=== PATIENT | female | born 1965 | race Caucasian/White ===

== ENCOUNTER → 2018-02-06 | Outpatient (CLI) | payer OTHER ==
[~2018-02-06] MED LIST: ALBU3IS; ALBU3IS INH; ALBU90I; ALBU90OI61 INH; ALLO300 PO; ASCO500 PO; ASPI81EC PO; CHOLP; CHOLP PO; COLCHICINE 0.6 MG; Cholestyrami239.4 GM PO; ENAL20; ENAL20 PO; ERGO400 PO; ESTR2; ESTR2 PO; FLUSAL5005; FLUSAL5005 IH; HYDACE5 PO; HYDCHL25; HYDCHL25 PO; INS70/30I SUBQ; LEVFLO250 PO; LEVFLO500 PO; LISI5 PO; MAGNESIUM; METO50 PO; NEBI5 PO; ONDA4ODT MM; ONDA8ODT MM; OXYACE5T PO; PANT40; PANT40 PO; POTCHL10ER PO; PRED5; PRED5 PO; Percocet 7.5-31 EACH PO; RXONDA4ODT MM; TORSEMIDE PO; Zofran Odt4 MG SL; Zofran8 MG PO; [UNRECOGNIZED DRUG - OTHER]
== END | disposition home or self-care (01) ==
LOC: OLS 14:49 → LAB SHORT 14:49
PROVIDERS: Nurse Practitioner Women's Health
DX: Z12.72 Encounter for screening for malignant neoplasm of vagina (principal); Z91.89 Other specified personal risk factors, not elsewhere classified
CPT/HCPCS: 87624; G0123

== ENCOUNTER → 2018-02-24 | Outpatient (CLI) | payer OTHER | END | disposition home or self-care (01) | LOC: LAB 14:14 → LAB SHORT 14:14 | DX: R35.0 Frequency of micturition (principal); R30.1 Vesical tenesmus | CPT/HCPCS: 87077; 87086; 87186 ==

== ENCOUNTER → 2018-05-16 | Outpatient (CLI) | payer OTHER | LOC: LAB SHORT 16:18 → LAB 16:18 | DX: N39.0 Urinary tract infection, site not specified (principal) | CPT/HCPCS: 87086 ==

== ENCOUNTER 2018-10-01 11:40 | Observation (INO) | payer OTHER ==
[~2018-10-01] VITALS: Ht 177.8 cm; Wt 130.6 kg
[2018-10-01 12:34] LABS: BASOPHILS ABSOLUTE AUTO 0.07 K/mm3 (0.00-0.23); BASOPHILS PERCENT AUTO 1 % (0-2); EOSINOPHILS ABSOLUTE AUTO 0.17 K/mm3 (0.00-0.68); EOSINOPHILS PERCENT AUTO 1 % (0-6); Hematocrit 40.9 % (33.0-51.0); Hemoglobin 12.9 g/dL (11.5-16.0); IMMATURE GRAN PERCENT AUTO 1 % (0-1); LYMPHOCYTES PERCENT AUTO 18 % (21-46); MONOCYTES PERCENT AUTO 7 % (4-13); Mean Corpuscular HGB 29.1 pg (26.0-34.0); Mean Corpuscular HGB Conc 31.5 g/dL (31.5-36.5); Mean Corpuscular Volume 92 fL (80-100); Mean Platelet Volume 9.4 fL (9.1-12.4); NEUTROPHILS ABSOLUTE AUTO 10.73 K/mm3 (1.96-9.15); NEUTROPHILS PERCENT AUTO 72 % (41-73); Platelet Count 334 K/mm3 (150-400); RDW Standard Deviation 47.1 fL (35.1-46.3); Red Blood Cell Count 4.44 M/mm3 (3.80-5.20); White Blood Cell Count 14.87 K/mm3 (4.00-11.30)
[2018-10-01 12:49] LABS: Alanine Aminotransfer (ALT/SGP 24 U/L (12-78); Albumin, Blood 3.6 g/dL (3.4-5.0); Alk Phos 137 U/L (50-136); Anion Gap 10 mmol/L (6-16); Aspartate Aminotrans (AST/SGOT 22 U/L (12-37); Bilirubin, Total 0.4 mg/dL (0.1-1.0); Blood Urea Nitrogen 13 mg/dL (8-24); Bun/Creatinine Ratio 19.1 (12.0-20.0); CO2, Blood 29 mmol/L (21-32); Calcium, Blood 8.8 mg/dL (8.5-10.1); Chloride, Blood 99 mmol/L (98-108); Creatinine, Blood 0.68 mg/dL (0.40-1.00); Globulin, Blood 3.5 g/dL (2.2-4.0); Glomerular Filtration Rate >60 (60-); Glucose, Blood 214 mg/dL (70-99); Potassium, Blood 3.2 mmol/L (3.5-5.5); Sodium, Blood 138 mmol/L (136-145); Total Protein, Blood 7.1 g/dL (6.4-8.2)
[2018-10-01 13:50] LABS: Source, Urine Clean Catch
[2018-10-01 14:08] LABS: Bilirubin, Urine Neg (Neg); Blood, Urine Neg (Neg); Glucose Qualitative, Urine Neg (Neg); Ketones, Urine Neg (Neg); Leukocyte Esterase, Urine 1+ (Neg); Nitrite, Urine Neg (Neg); Protein, Urine 1+ (Neg); Urobilinogen, Urine NORM (Normal)
[2018-10-01 14:23] LABS: Appearance, Urine Clear (Clear); Color, Urine Yellow (P-Yellow)
[2018-10-01 14:24] LABS: Bacteria Few /hpf; Calcium Oxalate Crystals Rare /hpf; Red Blood Cells, Urine 0-2 /hpf (0-2); Squamous Epithelial Cells Few /hpf (Few)
--- NOTE | 2018-10-01 17:18 | NUR ---
OR HAS SEEN PT. HAD SEEN PT IN ED. PT IS PLEASANT. USED THE RESTROOM. DR MUNROE SAW PT HX INCLUDING LABS. PT WAS GIVEN DUONEB. AT BEDSIDE. WILL TAKE PT BACK TO OR.
[2018-10-02 05:44] LABS: BASOPHILS ABSOLUTE AUTO 0.01 K/mm3 (0.00-0.23); BASOPHILS PERCENT AUTO 0 % (0-2); EOSINOPHILS PERCENT AUTO 0 % (0-6); Hematocrit 37.6 % (33.0-51.0); Hemoglobin 11.8 g/dL (11.5-16.0); IMMATURE GRAN ABSOLUTE AUTO 0.06 K/mm3 (0.00-0.10); IMMATURE GRAN PERCENT AUTO 1 % (0-1); LYMPHOCYTES ABSOLUTE AUTO 0.96 K/mm3 (0.84-5.20); LYMPHOCYTES PERCENT AUTO 7 % (21-46); MONOCYTES ABSOLUTE AUTO 0.53 K/mm3 (0.16-1.47); MONOCYTES PERCENT AUTO 4 % (4-13); Mean Corpuscular HGB 28.6 pg (26.0-34.0); Mean Corpuscular HGB Conc 31.4 g/dL (31.5-36.5); Mean Corpuscular Volume 91 fL (80-100); Mean Platelet Volume 9.4 fL (9.1-12.4); NEUTROPHILS ABSOLUTE AUTO 11.67 K/mm3 (1.96-9.15); NEUTROPHILS PERCENT AUTO 88 % (41-73); Platelet Count 323 K/mm3 (150-400); RDW Coefficient Variation 14.3 % (11.7-14.2); Red Blood Cell Count 4.13 M/mm3 (3.80-5.20); White Blood Cell Count 13.23 K/mm3 (4.00-11.30)
--- NOTE | 2018-10-02 07:15 | NUR ---
10/02/18 0715 Alix Ann VERIFICATIONS: EDIT CHART.
--- NOTE | 2018-10-02 07:43 | NUR ---
SUMMARY: POD [address] CRUZ. PT HAVING HTN PER HISTORY AND STATES SHE HAS NOT TAKEN ANY HOME MEDS DUE TO N/V PRIOR TO ADMIT, REMAINS AFEBRILE. HOSPITALIST CONSULT CALLED THIS MORNING. UP SEVERAL TIMES FOR BRP, VOIDING DARK YELLOW. TOLERATING CLEARS, NO NAUSEA. PAIN WELL CONTROLLED WITH 2 TABS NORCO X2 THIS SHIFT AND 25 MCG IV FENTANYL. ENCOURAGE OOB ACTIVITY AND HOSPITALIST CONSULT FOR MEDICAL MANAGEMENT OF HTN.
--- NOTE | 2018-10-02 07:53 | NUR ---
HOSPITALIST CX CALLED AT THIS TIME. DR PLATA AWARE OF PATIENT AND WILL COME SEE HER DURING SURGICAL FLOOR ROUNDS.
[2018-10-02] MEDS ORDERED: HYDR1TAB94 PO (16:22)
--- NOTE | 2018-10-02 16:51 | NUR ---
DISCHARGE SUMMARY PT A&OX4, VSS, WENT HOME WITH , WITH ALL PERSONAL POSSESSIONS, DISCHARGE PACKET AND 1 NARC SCRIPT. DISCHARGE INSTRUCTIONS PROVIDED. PT REP UNDERSTANDING THOSE INSTRUCTIONS INCLUDING FU [address] CRUZ. NISREEN BOSWELL.
== END 2018-10-02 16:45 | disposition home or self-care (01) ==
LOC: ER 11:40 → SURS 11:41
PROVIDERS: Physician Assistant; ADMIT Surgery
PROC: 0DTJ4ZZ Resection of Appendix, Percutaneous Endoscopic Approach (ICD-10-PCS; principal; 2018-10-01 17:00)
DX: K35.80 Unspecified acute appendicitis (principal); E11.9 Type 2 diabetes mellitus without complications; I10 Essential (primary) hypertension; Z79.52 Long term (current) use of systemic steroids; Z79.899 Other long term (current) drug therapy; Z79.82 Long term (current) use of aspirin; Z88.2 Allergy status to sulfonamides; Z88.8 Allergy status to other drugs, medicaments and biological substances
CPT/HCPCS: 36415; 74177; 80053; 81001; 82947; 83690; 85025; 87086; 88304; 93005; 93010; 96361; 96365; 96366; 96375; 96376; 99285-25; C1729; G0378; J0295; J1100; J1720; J1815; J1885; J2250; J2405; J2710; J3010; J7030; J7120; Q9967

== ENCOUNTER → 2018-10-20 | Outpatient (CLI) | payer OTHER ==
[~2018-10-20] MED LIST changes: +HYDR1TAB94 PO
== END | disposition home or self-care (01) ==
LOC: LAB 12:25 → LAB SHORT 12:25
DX: N39.0 Urinary tract infection, site not specified (principal)
CPT/HCPCS: 87086

== ENCOUNTER → 2019-06-04 | Outpatient (CLI) | payer OTHER ==
[2019-06-06 15:07] LABS: HPV 16 Negative (Negative); HPV 18 Negative (Negative); HPV OTHER HR TYPES Negative (Negative)
== END | disposition home or self-care (01) ==
LOC: LAB 16:51 → LAB SHORT 16:51
PROVIDERS: Nurse Practitioner Women's Health
DX: Z12.4 Encounter for screening for malignant neoplasm of cervix (principal); Z91.89 Other specified personal risk factors, not elsewhere classified
CPT/HCPCS: 87624; G0123

== ENCOUNTER → 2021-02-22 | Outpatient (CLI) | payer OTHER | END | disposition home or self-care (01) | LOC: LAB SHORT 11:34 → LAB 11:34 | DX: D48.5 Neoplasm of uncertain behavior of skin (principal) | CPT/HCPCS: 88305 ==

== ENCOUNTER → 2021-05-03 | Outpatient (CLI) | payer OTHER | LOC: LAB SHORT 08:54 → LAB 08:54 | DX: D48.5 Neoplasm of uncertain behavior of skin (principal); D22.5 Melanocytic nevi of trunk; D22.62 Melanocytic nevi of left upper limb, including shoulder; Z88.2 Allergy status to sulfonamides; Z88.8 Allergy status to other drugs, medicaments and biological substances | CPT/HCPCS: 88305 ==

== ENCOUNTER 2022-04-25 07:01 | Day surgery (SDC) | payer OTHER ==
[~2022-04-25] VITALS: Ht 177.8 cm; Wt 119.4 kg
[2022-04-25] MEDS ORDERED: SYMBICORT 160-4.6 GM INH (07:25)
[2022-04-25] MEDS ORDERED: INSULANI (07:31)
--- NOTE | 2022-04-25 07:37 | NUR ---
[facility] in [facility] warming gown applied. Patient states colon prep results clear. History, Chart, Medications and Allergies reviewed before start of procedure.Lungs clear T/O to Auscultation. Patient confirms NPO status and agrees with scheduled surgery. Pre-Op teaching done. Pt verbalizes understanding. Patient States Post-Procedure ride home has been arranged.
--- NOTE | 2022-04-25 08:03 | NUR ---
04/25/22 0803 Betsy Joseph HISTORY, CHART, MEDICATIONS AND ALLERGIES REVIEWED BEFORE START OF PROCEDURE. PATIENT CONFIRMS NPO STATUS AND AGREES WITH SCHEDULED PROCEDURE. 3-LEAD EKG REVIEWED WITH PHYSICIAN PRIOR TO START OF PROCEDURE. MONITOR INTACT WITH CONTINUOUS PULSE OXIMETRY,CAPNOGRAPHY, 3-LEAD EKG, INTERMITTENT BP. SUPPLEMENTAL O2 TO BE TITRATED THROUGHOUT PROCEDURE TO MAINTAIN O2 SATURATION ABOVE 90%. PATIENT DETERMINED TO BE ASA APPROPRIATE FOR PROPOFOL SEDATION PRIOR TO START OF PROCEDURE BY DR. BUENO. MALLAMPATI CLASS 1 AIRWAY: COMPLETE VISULATIZATION OF THE SOFT PALATE. STOP BANG ASSESSMENT SCORE 3.
--- NOTE | 2022-04-25 09:10 | NUR ---
PT TOLERATING WATER. NO PAIN. Discharge instructions reviewed with patient. Patient verbalizes understanding. Copy given to patient to take home. Discharged via wheelchair to private car for ride home.
== END 2022-04-25 09:14 | disposition home or self-care (01) ==
LOC: ORSCMMR 07:01 → ORD 08:00 → ORSCMMR 08:00
DX: R13.14 Dysphagia, pharyngoesophageal phase (principal); K44.9 Diaphragmatic hernia without obstruction or gangrene; R19.7 Diarrhea, unspecified; K21.9 Gastro-esophageal reflux disease without esophagitis; I10 Essential (primary) hypertension; R00.0 Tachycardia, unspecified; E11.9 Type 2 diabetes mellitus without complications; J45.909 Unspecified asthma, uncomplicated; M10.9 Gout, unspecified; E66.9 Obesity, unspecified; Z68.39 Body mass index [BMI] 39.0-39.9, adult; Z79.4 Long term (current) use of insulin; Z79.899 Other long term (current) drug therapy
CPT/HCPCS: 82947; A9270; C1726; J2250; J2405; J2704; J7120

== ENCOUNTER → 2024-02-05 | Outpatient (CLI) | payer OTHER ==
[~2024-02-05] MED LIST changes: +INSULANI; +SYMBICORT 160-4.6 GM INH
== END ==
LOC: LAB SHORT 13:45 → LAB 13:45
DX: N39.0 Urinary tract infection, site not specified (principal)
CPT/HCPCS: 87077; 87086; 87186